=== PATIENT | male | born 1990 | race African-American/Black ===

== ENCOUNTER 2020-11-08 14:11 | Emergency (ER) | payer MEDICAID ==
[~2020-11-08] VITALS: Ht 175.3 cm; Wt 105.0 kg
[2020-11-08 14:14] VITALS: BP 157/97
[2020-11-08 15:21] LABS: BASOPHILS % 1.3 % (0.0-2.0); EOSINOPHILS % 0.5 % (0.0-5.0); HEMATOCRIT. 45.1 % (42.0-52.0); HEMOGLOBIN. 15.2 g/dL (14.0-18.0); LYMPHOCYTES % 34.4 % (20.0-50.0); MEAN CORPUSCULAR HEMOGLOBIN 32.6 pg (28.0-32.0); MEAN CORPUSCULAR VOLUME 96.9 fL (80.0-94.0); MEAN PLATELET VOLUME 9.2 fl (7.4-10.4); NEUTROPHILS % 57.8 % (40.0-76.0); PLATELET 294 x1000/uL (130-400); RED BLOOD CELL COUNT 4.66 mill/uL (4.7-6.1); RED CELL DISTRIBUTION WIDTH 12.9 % (11.6-14.6)
[2020-11-08 15:28] LABS: CHLORIDE 107 mEq/L (98-107)
== END 2020-11-08 17:13 | disposition home or self-care (01) ==
LOC: ER 14:11
DX: R07.89 Other chest pain (principal)
CPT/HCPCS: 36415; 71045; 80053; 83880; 84484; 85025; 93005; 99285

== ENCOUNTER 2022-04-08 08:05 | Emergency (ER) | payer MEDICAID ==
[~2022-04-08] VITALS: Ht 175.3 cm; Wt 98.0 kg
[2022-04-08] MEDS ORDERED: MAGNESIUM/ALUMINUM HYDROXIDE/SIMETHICONE 30ML UDC PO STA (08:31)
[2022-04-08] MEDS ORDERED: VISCOUS LIDOCAINE 2% 15 ML UDC PO STA (08:31)
[2022-04-08] MEDS ORDERED: ACETAMINOPHEN 325MG TABLET PO STA (08:31)
[2022-04-08 09:02] LABS: CLARITY URINE CLEAR (CLEAR); COLOR URINE YELLOW (YELLOW); KETONES URINE TRACE (NEGATIVE); LEUKOCYTE ESTERASE URINE 2+ (NEGATIVE); NITRITE URINE NEGATIVE (NEGATIVE); OCCULT BLOOD URINE NEGATIVE (NEGATIVE); PROTEIN URINE 1+ (NEGATIVE); SPECIFIC GRAVITY URINE 1.026 (1.005-1.030)
[2022-04-08 09:05] LABS: BASOPHILS % 1.1 % (0.0-2.0); CHLORIDE 110 mEq/L (98-107); EOSINOPHILS % 0.6 % (0.0-5.0); HEMATOCRIT. 45.5 % (42.0-52.0); HEMOGLOBIN. 15.1 g/dL (14.0-18.0); LYMPHOCYTES % 27.8 % (20.0-50.0); MEAN CORPUSCULAR HEMOGLOBIN 32.8 pg (28.0-32.0); MEAN CORPUSCULAR VOLUME 98.9 fL (80.0-94.0); MEAN PLATELET VOLUME 9.3 fl (7.4-10.4); MONOCYTES % 6.2 % (2.0-8.0); NEUTROPHILS % 64.3 % (40.0-76.0); PLATELET 317 x1000/uL (130-400); RED CELL DISTRIBUTION WIDTH 13.3 % (11.6-14.6)
[2022-04-08] MEDS ORDERED: CLOT24CR TP (11:00)
[2022-04-08] MEDS ORDERED: NITR-87 MT (11:00)
[2022-04-08 11:33] VITALS: BP 159/102
== END 2022-04-08 11:34 | disposition home or self-care (01) ==
LOC: ER 08:22
DX: N39.0 Urinary tract infection, site not specified (principal); N48.1 Balanitis
CPT/HCPCS: 36415; 76705; 80053; 81003; 85025; 99284

== ENCOUNTER 2022-10-08 06:03 | Emergency (ER) | payer MEDICAID ==
[~2022-10-08] VITALS: Ht 172.7 cm; Wt 103.6 kg
[~2022-10-08 06:03] MED LIST: CLOT24CR TP; NITR-87 MT
[2022-10-08 06:07] VITALS: BP 150/103
[2022-10-08] MEDS ORDERED: DICYCLOMINE 10 MG/5 ML ORAL SYR PO STA (08:29)
[2022-10-08] MEDS ORDERED: ONDANSETRON 4MG ODT PO STA (08:29)
[2022-10-08] MEDS ORDERED: VISCOUS LIDOCAINE 2% 15 ML UDC PO SCH (08:29)
[2022-10-08] MEDS ORDERED: MAGNESIUM/ALUMINUM HYDROXIDE/SIMETHICONE 30ML UDC PO STA (08:29)
[2022-10-08] MEDS ORDERED: KETOROLAC 60MG/2ML VIAL IM STA (08:29)
[2022-10-08] MEDS ORDERED: CYCLOBENZAPRINE 10MG TABLET PO ONE (08:30)
[2022-10-08] MEDS ORDERED: CLOT24CR TP (08:45)
[2022-10-08 09:07] LABS: CLARITY URINE CLEAR (CLEAR); COLOR URINE YELLOW (YELLOW); KETONES URINE NEGATIVE (NEGATIVE); LEUKOCYTE ESTERASE URINE NEGATIVE (NEGATIVE); NITRITE URINE NEGATIVE (NEGATIVE); OCCULT BLOOD URINE NEGATIVE (NEGATIVE); PROTEIN URINE NEGATIVE (NEGATIVE); SPECIFIC GRAVITY URINE 1.023 (1.005-1.030); UROBILINOGEN URINE 0.2 E.U./dL (0.2-1.0)
== END 2022-10-08 11:05 | disposition home or self-care (01) ==
LOC: ER 06:03
DX: N48.1 Balanitis (principal)
CPT/HCPCS: 81003; 99283